=== PATIENT | female | born 1940 | race Two or more races ===

== ENCOUNTER 2024-05-31 18:57 | Inpatient (IN) | payer OTHER ==
[~2024-05-31] VITALS: Ht 162.6 cm; Wt 68.0 kg
[2024-05-31] MEDS ORDERED: ASPIRIN 325 MG TABLET.EC PO STA (19:12)
[2024-05-31] MEDS ORDERED: CANDESARTAN CILE8 MG PO (19:19)
[2024-05-31] MEDS ORDERED: TIROSINT25 MCG PO (19:19)
[2024-05-31] MEDS ORDERED: SIMVASTATIN20 MG PO (19:20)
[2024-05-31] MEDS ORDERED: GLUMETZA500 MG PO (19:20)
[2024-05-31] MEDS ORDERED: DILTIAZEM HCL 125 MG in DEXTROSE 5 % IN WATER 125 ML IV SCH (19:30)
[2024-05-31 19:59] LABS: HEMATOCRIT 43.3 % (36.0-45.00); HEMOGLOBIN 14.4 g/dL (12.0-15.00); MEAN CELL VOLUME 89.6 fL (80.00-100.00); MEAN CORPUSCULAR HEMOGLOBIN 29.8 pg (27.00-32.0); MEAN CORPUSCULAR HGB CONC 33.3 g/dl (32.0-36.0); PLATELET COUNT 228 K/uL (150-450); RED BLOOD COUNT 4.84 M/uL (4.00-6.00); RED CELL DISTRIBUTION WIDTH 13.3 % (11.5-14.5)
[2024-05-31 20:21] LABS: INR 1.05; PARTIAL THROMBOPLASTIN TIME 29.3 SECONDS (22.0-34.0); PROTHROMBIN TIME 11.4 SECONDS (9.0-11.5)
[2024-05-31 20:28] LABS: CREATININE SERUM 0.85 mg/dL (0.55-1.02); GFR 63.56; POTASSIUM 3.7 mEq/L (3.5-5.1)
[2024-05-31] MEDS ORDERED: ENOXAPARIN SODIUM 60 MG/0.6 ML SYRINGE SUBCUTANEO ONE (20:30)
[2024-05-31] MEDS ORDERED: DILTIAZEM HCL 125 MG in 0.9 % SODIUM CHLORIDE 100 ML IV SCH (20:30)
[2024-05-31] MEDS ORDERED: IPRATROPIUM BROMIDE 0.5 MG/2.5 ML AMPUL.NEB IH SCH (20:45)
[2024-05-31] MEDS ORDERED: 0.9 % SODIUM CHLORIDE 1,000 ML IV SCH (20:45)
[2024-05-31] MEDS ORDERED: DEXTROSE 50 % IN WATER 0.5 G/ML DISP.SYRIN IV PRN (21:00)
[2024-05-31] MEDS ORDERED: ACETAMINOPHEN 500 MG GEL..CAP PO PRN (21:00)
[2024-05-31] MEDS ORDERED: INSULIN LISPRO 1,000 UNIT/10 ML UNITS SUBCUTANEO PRN (21:00)
[2024-05-31] MEDS ORDERED: METHYLPREDNISOLONE SOD SUCC 125 MG VIAL IV ONE (21:30)
[2024-05-31] MEDS ORDERED: DIPHENHYDRAMINE HCL 50 MG/ML VIAL 1ML IV ONE (21:30)
[2024-05-31 22:39] VITALS: BP 105/60; O2SAT 96
[2024-05-31 23:02] LABS: ABG PH 7.472 (7.35-7.45); ABG PO2 77.2 mmHg (80-100); ABG pCO2 36.1 mmHg (35-45); BASE EXCESS 2.5 mmol/l; BICARBONATE 25.8 mmol/l (23-25); Tco2 26.9 mmol/l
[2024-05-31 23:04] LABS: allen test SATISFACTORY; o2 21 %; puncture site BRADIAL RIGHT
[2024-05-31 23:07] LABS: SaO2 96.3 %
[2024-05-31 23:30] LABS: PH,URINE 8.5 (5.0-8.0); URINE APPEARANCE Cloudy; URINE BILIRRUBIN Negative (NEGATIVE); URINE BLOOD Negative; URINE COLOR Yellow; URINE GLUCOSE Negative (NEGATIVE); URINE KETONE Negative (NEGATIVE); URINE LEUKOCYTE Trace; URINE NITRATE Negative
[2024-05-31 23:31] LABS: URINE BACTERIA 214.1 uL (0.0-1933); URINE EPITHELIAL CELLS 34.7 uL (0.0-38.8); URINE RBC 17.2 uL (0.0-20.8); URINE WBC 80.2 uL (0.0-23.2)
[2024-05-31 23:35] LABS: URINE PROTEIN 100 (NEGATIVE)
[2024-05-31 23:50] LABS: URINE CRYSTALS FEW /HPF
[2024-06-01] VITALS (14 sets, daily range): BP systolic 84–124; BP diastolic 54–81; O2SAT 95–100
[2024-06-01] MEDS ORDERED: LEVOTHYROXINE SODIUM 25 MCG TABLET PO SCH (06:00)
[2024-06-01] MEDS ORDERED: FAMOTIDINE/PF 20 MG in 0.9 % SODIUM CHLORIDE 8 ML IV PUSH SCH (09:00)
[2024-06-01] MEDS ORDERED: ATORVASTATIN CALCIUM 40 MG TABLET PO SCH (09:00)
[2024-06-01] MEDS ORDERED: ENOXAPARIN SODIUM 60 MG/0.6 ML SYRINGE SUBCUTANEO SCH (09:00)
[2024-06-02] VITALS (7 sets, daily range): BP systolic 123–140; BP diastolic 68–94; O2SAT 90–100
[2024-06-02 06:55] LABS: HEMATOCRIT 38.9 % (36.0-45.00); HEMOGLOBIN 13.1 g/dL (12.0-15.00); MEAN CELL VOLUME 89.3 fL (80.00-100.00); MEAN CORPUSCULAR HEMOGLOBIN 30.1 pg (27.00-32.0); MEAN CORPUSCULAR HGB CONC 33.6 g/dl (32.0-36.0); PLATELET COUNT 210 K/uL (150-450); RED BLOOD COUNT 4.35 M/uL (4.00-6.00); RED CELL DISTRIBUTION WIDTH 13.3 % (11.5-14.5)
[2024-06-02] MEDS ORDERED: METOPROLOL TARTRATE 25 MG TABLET PO SCH (12:00)
[2024-06-02 12:34] LABS: ALBUMIN 3.2 gm/dL (3.4-5.0); BILIRUBIN TOTAL 0.42 mg/dL (0.3-1.2); CALCIUM 8.3 mg/dL (8.5-10.1); CREATININE SERUM 0.76 mg/dL (0.55-1.02); GFR 72.33; GLOBULINA 3.7 G/DL (2.4-3.5); MAGNESIUM 2.6 mg/dL (1.8-2.4); PHOSPHOROUS 2.4 mg/dL (2.5-4.9); POTASSIUM 3.99 mEq/L (3.5-5.1); TOTAL PROTEIN 6.9 gm/dL (6.4-8.2)
[2024-06-02 13:59] LABS: URINE APPEARANCE Turbid; URINE BILIRRUBIN Small (NEGATIVE); URINE BLOOD Large; URINE COLOR Orange; URINE GLUCOSE Negative (NEGATIVE); URINE KETONE Negative (NEGATIVE); URINE LEUKOCYTE Moderate; URINE NITRATE Positive
[2024-06-02 14:04] LABS: URINE EPITHELIAL CELLS 4.1 uL (0.0-38.8); URINE WBC 199.7 uL (0.0-23.2)
[2024-06-02 14:20] LABS: URINE BACTERIA > 9821.5 uL (0.0-1933); URINE CAST 0.64 uL (0.0-1.40); URINE PROTEIN 100 (NEGATIVE); URINE RBC > 10558.9 uL (0.0-20.8)
[2024-06-02 14:25] LABS: URINE YEAST NEGATIVE /hpf
[2024-06-02] MEDS ORDERED: SULFAMETHOXAZOLE/TRIMETHOPRIM DS 1 TAB PO SCH (17:00)
[2024-06-02] MEDS ORDERED: BENZONATATE 100 MG CAPSULE PO SCH (18:50)
[2024-06-03] VITALS (12 sets, daily range): BP systolic 125–172; BP diastolic 70–90; O2SAT 87–96
[2024-06-03 05:25] LABS: HEMATOCRIT 42.4 % (36.0-45.00); HEMOGLOBIN 14.3 g/dL (12.0-15.00); MEAN CELL VOLUME 89.5 fL (80.00-100.00); MEAN CORPUSCULAR HEMOGLOBIN 30.2 pg (27.00-32.0); MEAN CORPUSCULAR HGB CONC 33.8 g/dl (32.0-36.0); PLATELET COUNT 248 K/uL (150-450); RED BLOOD COUNT 4.74 M/uL (4.00-6.00); RED CELL DISTRIBUTION WIDTH 13.7 % (11.5-14.5)
[2024-06-03 05:53] LABS: ALBUMIN 3.2 gm/dL (3.4-5.0); BILIRUBIN TOTAL 0.57 mg/dL (0.3-1.2); CALCIUM 8.3 mg/dL (8.5-10.1); CREATININE SERUM 0.91 mg/dL (0.55-1.02); GFR 58.75; GLOBULINA 4.1 G/DL (2.4-3.5); MAGNESIUM 2.4 mg/dL (1.8-2.4); PHOSPHOROUS 2.9 mg/dL (2.5-4.9); POTASSIUM 4.34 mEq/L (3.5-5.1); TOTAL PROTEIN 7.3 gm/dL (6.4-8.2)
[2024-06-03] MEDS ORDERED: AMIODARONE HCL 200 MG TABLET PO SCH (09:00)
[2024-06-03] MEDS ORDERED: MINERAL OIL 30 ML BLIST.PACK PO NR (14:00)
[2024-06-03] MEDS ORDERED: MAGNESIUM HYDROXIDE 30 ML BLIST.PACK PO NR (14:00)
[2024-06-03] MEDS ORDERED: DOCUSATE SODIUM 100MG CAP PO SCH (17:00)
[2024-06-03] MEDS ORDERED: AMLODIPINE BESYLATE 5 MG TABLET PO NR (18:00)
[2024-06-04] VITALS (7 sets, daily range): BP systolic 119–165; BP diastolic 75–90; O2SAT 90–98
[2024-06-04 08:26] LABS: HEMATOCRIT 39.3 % (36.0-45.00); HEMOGLOBIN 13.3 g/dL (12.0-15.00); MEAN CELL VOLUME 89.8 fL (80.00-100.00); MEAN CORPUSCULAR HEMOGLOBIN 30.5 pg (27.00-32.0); MEAN CORPUSCULAR HGB CONC 33.9 g/dl (32.0-36.0); PLATELET COUNT 199 K/uL (150-450); RED BLOOD COUNT 4.37 M/uL (4.00-6.00); RED CELL DISTRIBUTION WIDTH 13.3 % (11.5-14.5)
[2024-06-04] MEDS ORDERED: METOPROLOL TARTRATE 25 MG TABLET PO SCH ×2 (12:36→17:00)
[2024-06-04] MEDS ORDERED: FUROsemide 40 MG/4 ML VIAL IV STA ×2 (13:08→13:20)
[2024-06-04] MEDS ORDERED: NITROGLYCERIN IN 5 % DEXTROSE 250 ML IV SCH (13:30)
[2024-06-04 13:59] LABS: ABG PH 7.436 (7.35-7.45); ABG pCO2 38.4 mmHg (35-45); BASE EXCESS 1.2 mmol/l; BICARBONATE 25.3 mmol/l (23-25); SaO2 94.3 %; Tco2 26.4 mmol/l; allen test SATISFACTORY; o2 36 %; puncture site RADIAL LEFT
[2024-06-04] MEDS ORDERED: AMLODIPINE BESYLATE 5 MG TABLET PO SCH (17:00)
[2024-06-04] MEDS ORDERED: NITROFURANTOIN MONOHYD/M-CRYST 100 MG CAPSULE PO SCH (17:00)
[2024-06-04] MEDS ORDERED: AMIODARONE HCL 200 MG TABLET PO SCH (17:00)
[2024-06-04 17:46] LABS: ALBUMIN 3.1 gm/dL (3.4-5.0); BILIRUBIN TOTAL 0.86 mg/dL (0.3-1.2); CALCIUM 7.6 mg/dL (8.5-10.1); CREATININE SERUM 0.96 mg/dL (0.55-1.02); GFR 55.24; GLOBULINA 3.5 G/DL (2.4-3.5); POTASSIUM 3.66 mEq/L (3.5-5.1); TOTAL PROTEIN 6.6 gm/dL (6.4-8.2)
[2024-06-04] MEDS ORDERED: FUROsemide 40 MG/4 ML VIAL IV SCH (21:00)
[2024-06-05] VITALS (7 sets, daily range): BP systolic 96–138; BP diastolic 66–83; O2SAT 93–99
[2024-06-05 06:51] LABS: ABG PH 7.484 (7.35-7.45); ABG PO2 80.3 mmHg (80-100); SaO2 96.9 %
[2024-06-05 06:52] LABS: BASE EXCESS 7.2 mmol/l; BICARBONATE 31.5 mmol/l (23-25); Tco2 32.9 mmol/l; allen test SATISFACTORY; o2 50 %; puncture site RADIAL RIGHT
[2024-06-05 07:36] LABS: HEMATOCRIT 38.5 % (36.0-45.00); HEMOGLOBIN 13.1 g/dL (12.0-15.00); MEAN CELL VOLUME 88.5 fL (80.00-100.00); MEAN CORPUSCULAR HEMOGLOBIN 30.1 pg (27.00-32.0); PLATELET COUNT 190 K/uL (150-450); RED BLOOD COUNT 4.35 M/uL (4.00-6.00); RED CELL DISTRIBUTION WIDTH 13.3 % (11.5-14.5)
[2024-06-05 08:23] LABS: ALBUMIN 2.9 gm/dL (3.4-5.0); BILIRUBIN TOTAL 0.82 mg/dL (0.3-1.2); CALCIUM 7.9 mg/dL (8.5-10.1); CREATININE SERUM 0.82 mg/dL (0.55-1.02); GFR 66.26; GLOBULINA 3.4 G/DL (2.4-3.5); MAGNESIUM 2.2 mg/dL (1.8-2.4); POTASSIUM 3.69 mEq/L (3.5-5.1); TOTAL PROTEIN 6.3 gm/dL (6.4-8.2)
[2024-06-05] MEDS ORDERED: METOPROLOL SUCCINATE 25 MG TAB.SR.24H PO SCH (09:00)
[2024-06-05] MEDS ORDERED: DIGOXIN 0.125 MG TABLET PO SCH (11:07)
[2024-06-05] MEDS ORDERED: LINEZOLID 600 MG TABLET PO SCH (21:00)
[2024-06-05] MEDS ORDERED: OSELTAMIVIR PHOSPHATE 75 MG CAPSULE PO SCH (21:00)
[2024-06-05] MEDS ORDERED: OSELTAMIVIR PHOSPHATE 75 MG CAPSULE PO ONE (21:15)
[2024-06-06 00:50] VITALS: BP 120/70; O2SAT 96
[2024-06-06 10:13] VITALS: BP 105/61; O2SAT 94
[2024-06-06] MEDS ORDERED: OSELTAMIVIR PHOSPHATE 30MG CAP PO NR (11:20)
[2024-06-06 13:30] VITALS: O2SAT 95
[2024-06-06 16:45] VITALS: BP 100/68; O2SAT 97
[2024-06-06 16:58] VITALS: O2SAT 90
[2024-06-06] MEDS ORDERED: ONDANSETRON HCL 2 MG/ML VIAL IV ONE (19:15)
[2024-06-06] MEDS ORDERED: OSELTAMIVIR PHOSPHATE 30MG CAP PO SCH (21:00)
[2024-06-06] MEDS ORDERED: AMIODARONE HCL 200 MG TABLET PO SCH (21:35)
[2024-06-07] VITALS (11 sets, daily range): BP systolic 103–115; BP diastolic 59–69; O2SAT 81–95
[2024-06-07 06:28] LABS: HEMATOCRIT 41.4 % (36.0-45.00); HEMOGLOBIN 14.3 g/dL (12.0-15.00); MEAN CELL VOLUME 87.6 fL (80.00-100.00); MEAN CORPUSCULAR HEMOGLOBIN 30.2 pg (27.00-32.0); MEAN CORPUSCULAR HGB CONC 34.5 g/dl (32.0-36.0); PLATELET COUNT 238 K/uL (150-450); RED BLOOD COUNT 4.72 M/uL (4.00-6.00); RED CELL DISTRIBUTION WIDTH 13.2 % (11.5-14.5)
[2024-06-07 06:59] LABS: ALBUMIN 2.6 gm/dL (3.4-5.0); BILIRUBIN TOTAL 0.65 mg/dL (0.3-1.2); CALCIUM 7.8 mg/dL (8.5-10.1); CREATININE SERUM 0.92 mg/dL (0.55-1.02); GFR 58.02; GLOBULINA 3.5 G/DL (2.4-3.5); MAGNESIUM 2.5 mg/dL (1.8-2.4); PHOSPHOROUS 4.4 mg/dL (2.5-4.9); POTASSIUM 3.14 mEq/L (3.5-5.1); TOTAL PROTEIN 6.1 gm/dL (6.4-8.2)
[2024-06-07] MEDS ORDERED: FUROsemide 40 MG/4 ML VIAL IV SCH (09:00)
[2024-06-07] MEDS ORDERED: RIVAROXABAN 20 MG TABLET PO SCH (09:00)
[2024-06-07] MEDS ORDERED: POTASSIUM BICARBONATE/CIT AC 25 MEQ TABLET.EFF PO NR (13:00)
[2024-06-07] MEDS ORDERED: POTASSIUM CHLORIDE IN WATER 100 ML IV NR (13:00)
[2024-06-07] MEDS ORDERED: POTASSIUM BICARBONATE/CIT AC 25 MEQ TABLET.EFF PO SCH (21:00)
[2024-06-08] VITALS (9 sets, daily range): BP systolic 101–111; BP diastolic 56–68; O2SAT 91–94
[2024-06-08] MEDS ORDERED: MINERAL OIL 30 ML BLIST.PACK PO STA (14:24)
[2024-06-08] MEDS ORDERED: DOCUSATE SODIUM 100MG CAP PO SCH (17:00)
[2024-06-09] VITALS (10 sets, daily range): BP systolic 121–149; BP diastolic 63–79; O2SAT 90–94
[2024-06-09 06:30] LABS: ABG PH 7.472 (7.35-7.45); ABG PO2 72.4 mmHg (80-100); ABG pCO2 53.2 mmHg (35-45); BASE EXCESS 12.2 mmol/l; BICARBONATE 38.1 mmol/l (23-25); SaO2 95.9 %; Tco2 39.7 mmol/l; o2 50 %
[2024-06-09 06:31] LABS: allen test SATISFACTORY; puncture site RADIAL RIGHT
[2024-06-09 06:34] LABS: HEMATOCRIT 43.3 % (36.0-45.00); HEMOGLOBIN 14.7 g/dL (12.0-15.00); MEAN CELL VOLUME 89.1 fL (80.00-100.00); MEAN CORPUSCULAR HEMOGLOBIN 30.1 pg (27.00-32.0); MEAN CORPUSCULAR HGB CONC 33.8 g/dl (32.0-36.0); PLATELET COUNT 214 K/uL (150-450); RED BLOOD COUNT 4.87 M/uL (4.00-6.00); RED CELL DISTRIBUTION WIDTH 13.3 % (11.5-14.5)
[2024-06-09 07:12] LABS: ALBUMIN 2.6 gm/dL (3.4-5.0); BILIRUBIN TOTAL 0.52 mg/dL (0.3-1.2); CALCIUM 8.6 mg/dL (8.5-10.1); CREATININE SERUM 0.63 mg/dL (0.55-1.02); GFR 89.81; GLOBULINA 3.8 G/DL (2.4-3.5); MAGNESIUM 2.6 mg/dL (1.8-2.4); PHOSPHOROUS 4.6 mg/dL (2.5-4.9); POTASSIUM 4.65 mEq/L (3.5-5.1); TOTAL PROTEIN 6.4 gm/dL (6.4-8.2)
[2024-06-09] MEDS ORDERED: FUROsemide 40 MG/4 ML VIAL IV SCH (10:17)
[2024-06-09] MEDS ORDERED: METHYLPREDNISOLONE SOD SUCC 40 MG VIAL IV STA (11:52)
[2024-06-09] MEDS ORDERED: CODEINE PHOSPHATE/GUAIFENESIN 5 ML ML PO PRN (14:45)
[2024-06-09] MEDS ORDERED: IPRATROPIUM BROMIDE 0.5 MG/2.5 ML AMPUL.NEB IH SCH (18:00)
[2024-06-09] MEDS ORDERED: METOPROLOL TARTRATE 25 MG TABLET PO SCH (21:00)
[2024-06-10] VITALS (8 sets, daily range): BP systolic 127–131; BP diastolic 70–85; O2SAT 90–95
[2024-06-11] VITALS (10 sets, daily range): BP systolic 112–126; BP diastolic 69–75; O2SAT 90–95
[2024-06-11 06:47] LABS: ABG PH 7.556 (7.35-7.45); ABG pCO2 40.3 mmHg (35-45); BASE EXCESS 11.6 mmol/l; BICARBONATE 34.9 mmol/l (23-25); Tco2 36.2 mmol/l; o2 21 %
[2024-06-11 06:48] LABS: ABG PO2 55.6 mmHg (80-100); allen test SATISFACTORY; puncture site RADIAL RIGHT
[2024-06-11 06:49] LABS: SaO2 93.4 %
[2024-06-11] MEDS ORDERED: ACETAMINOPHEN 500 MG GEL..CAP PO PRN (08:15)
[2024-06-11] MEDS ORDERED: FUROsemide 20 MG TABLET PO SCH (09:00)
[2024-06-11] MEDS ORDERED: GABAPENTIN 100 MG CAPSULE PO SCH (17:00)
[2024-06-11] MEDS ORDERED: LIDOCAINE 5% 1 PATCH ADH. TOP SCH (21:00)
[2024-06-12] VITALS (8 sets, daily range): BP systolic 113–121; BP diastolic 65–73; O2SAT 88–95
[2024-06-12 13:55] LABS: ABG PH 7.506 (7.35-7.45); ABG pCO2 42.6 mmHg (35-45)
[2024-06-12 13:56] LABS: BASE EXCESS 8.9 mmol/l; SaO2 93.6 %; Tco2 34.3 mmol/l; allen test SATISFACTORY; o2 21 %; puncture site RADIAL RIGHT
[2024-06-12 18:42] LABS: ABG pCO2 43.1 mmHg (35-45)
[2024-06-12 18:43] LABS: BASE EXCESS 9.5 mmol/l; BICARBONATE 33.6 mmol/l (23-25); SaO2 92.1 %; Tco2 34.9 mmol/l; allen test SATISFACTORY; o2 24 %; puncture site RADIAL RIGHT
[2024-06-13] VITALS (7 sets, daily range): BP systolic 98–120; BP diastolic 58–654; O2SAT 90–98
[2024-06-13] MEDS ORDERED: AMIODARONE HCL 200 MG TABLET PO SCH (09:00)
[2024-06-13] MEDS ORDERED: XARELTO20 MG PO (14:42)
[2024-06-13] MEDS ORDERED: LIPITOR40 M1 PO (14:43)
[2024-06-13] MEDS ORDERED: LANOXIN125 MCG PO (14:43)
[2024-06-13] MEDS ORDERED: AMIODARONE HCL200 MG PO (14:43)
[2024-06-13] MEDS ORDERED: LOPRESSOR25 MG PO (14:44)
[2024-06-13] MEDS ORDERED: GABAPENTIN100 MG PO (14:44)
[2024-06-13] MEDS ORDERED: LEVOTHYROXINE25 MCG PO (14:45)
== END 2024-06-13 17:26 | disposition home or self-care (01) | DRG 309 ==
LOC: ER 18:58 → MEDI 21:30 → ICU-2 21:30 → SEC-K 06-03 08:42 → MEDI 06-03 11:14
PROVIDERS: Emergency Medicine; General Practice; Internal Medicine; ADMIT Internal Medicine; ATTEND Internal Medicine
PROC: B24BZZZ Ultrasonography of Heart with Aorta (ICD-10-PCS; 2024-06-02)
PROC: 4A12X4Z Monitoring of Cardiac Electrical Activity, External Approach (ICD-10-PCS; 2024-06-03)
PROC: 02HV33Z Insertion of Infusion Device into Superior Vena Cava, Percutaneous Approach (ICD-10-PCS; principal; 2024-06-04)
PROC: BW24YZZ Computerized Tomography (CT Scan) of Chest and Abdomen using Other Contrast (ICD-10-PCS; 2024-06-09)
DX: I48.20 Chronic atrial fibrillation, unspecified (principal); E87.1 Hypo-osmolality and hyponatremia; N39.0 Urinary tract infection, site not specified; T83.518A Infection and inflammatory reaction due to other urinary catheter, initial encounter; R09.02 Hypoxemia; J10.1 Influenza due to other identified influenza virus with other respiratory manifestations; E03.9 Hypothyroidism, unspecified; E78.5 Hyperlipidemia, unspecified; E11.9 Type 2 diabetes mellitus without complications; Z79.4 Long term (current) use of insulin; B95.2 Enterococcus as the cause of diseases classified elsewhere; Z99.81 Dependence on supplemental oxygen